=== PATIENT | male | born 1970 | race Caucasian/White ===

== ENCOUNTER 2017-12-27 12:03 | Emergency (ER) | payer OTHER ==
[~2017-12-27] VITALS: Ht 170.2 cm; Wt 88.5 kg
[2017-12-27 12:04] VITALS: BP 139/82; PULSE 81; RESP 19; TEMP 98.4; O2SAT 98
[2017-12-27] MEDS ORDERED: SODIUM CHLOR 0.9% 1000 ML INJ 1,000 ML IV SCH (12:27)
[2017-12-27] MEDS ORDERED: ONDANSETRON HCL 4 MG/2 ML VIAL IVP ONE (12:30)
[2017-12-27] MEDS ORDERED: SODIUM CHLORIDE 0.9% FLUSH 10 ML FLUSH IV FLUSH PRN (12:30)
[2017-12-27 13:01] VITALS: O2SAT 97
[2017-12-27 13:07] LABS: AUTOMATED NEUTROPHIL # 4.4 TH/MM3 (1.8-7.7); BASOPHIL # 0.1 TH/MM3 (0-0.2); BASOPHIL % 0.8 % (0.0-2.0); EOSINOPHIL # 0.3 TH/MM3 (0-0.4); EOSINOPHIL % 2.9 % (0.0-4.0); HEMATOCRIT 45.1 % (39.0-51.0); HEMOGLOBIN 15.4 GM/DL (13.0-17.0); LYMPH % 42.2 % (9.0-44.0); LYMPHOCYTE # 4.1 TH/MM3 (1.0-4.8); MEAN CORPUSCULAR HEMOGLOBIN 30.4 PG (27.0-34.0); MEAN CORPUSCULAR HGB CONC 34.2 % (32.0-36.0); MEAN PLATELET VOLUME 10.1 FL (7.0-11.0); MONO % 9.1 % (0.0-8.0); MONOCYTE # 0.9 TH/MM3 (0-0.9); PLATELET COUNT 141 TH/MM3 (150-450); RED BLOOD COUNT 5.07 MIL/MM3 (4.50-5.90); RED CELL DISTRIBUTION WIDTH 13.8 % (11.6-17.2); WHITE BLOOD COUNT 9.7 TH/MM3 (4.0-11.0)
--- NOTE | 2017-12-27 13:24 | RADRPT ---
EXAM DATE/TIME: 12/27/2017 12:53 [place] COMPARISON: No previous studies available for comparison. INDICATIONS : Left flank pain with hematuria ORAL CONTRAST: No oral contrast ingested. RADIATION DOSE: 8.25 CTDIvol (mGy) MEDICAL HISTORY : Renal calculi. SURGICAL HISTORY : Lithrotripsy ENCOUNTER: Initial ACUITY: 2 days PAIN SCALE: 3/10 LOCATION: Left flank TECHNIQUE: Volumetric scanning of the abdomen and pelvis was performed. Using automated exposure control and ad justment of the mA and/or kV according to patient size, radiation dose was kept as low as reasonably achievable to obtain optimal diagnostic quality images. DICOM format image data is available electro nically for review and comparison. FINDINGS: LOWER LUNGS: The visualized lower lungs are clear. LIVER: Homogeneous density without lesion. There is no dilation of the biliary tree. No calcified gallston es. SPLEEN: Normal size without lesion. PANCREAS: Within normal limits. KIDNEYS: Normal in size and shape. There is no mass or hydronephrosis. There are 2 nonobstructing left renal calculi measuring less than 1 mm and 4 mm. There is a 5-6 mm calculus in the mid to distal left urete r at the level of upper pelvis. This lies approximately 7 cm above the ureteral vesicular junction. ADRENAL GLANDS: Within normal limits. VASCULAR: There is no aortic aneurysm. BOWEL/MESENTERY: The stomach, small bowel, and colon demonstrate no acute abnormality. There is no free intraperitone al air or fluid. ABDOMINAL WALL: Within normal limits. RETROPERITONEUM: There is no lymphadenopathy. BLADDER: No wall thickening or mass. REPRODUCTIVE: Within normal limits. INGUINAL: There is no lymphadenopathy or hernia. MUSCULOSKELETAL: Within normal limits for patient age. CONCLUSION: 1. 6-7 mm mid to distal left ureteral calculus with no hydronephrosis at this time. 2. 2 smaller left renal calculi. Carl Kimble MD on December 27, 2017 at 13:11 Board Certified Radiologist. This report was verified electronically.
[2017-12-27 13:27] LABS: ALBUMIN 3.7 GM/DL (3.4-5.0); AST (GOT) 39 U/L (15-37); BICARBONATE 26.9 MEQ/L (21.0-32.0); BLOOD UREA NITROGEN 16 MG/DL (7-18); CALCIUM 8.5 MG/DL (8.5-10.1); CHLORIDE 106 MEQ/L (98-107); CREATININE 1.16 MG/DL (0.60-1.30); GLOMERULAR FILTRATION RATE 68 ML/MIN (>89); GLUCOSE,RANDOM 84 MG/DL (74-106); SODIUM (NA) 140 MEQ/L (136-145)
[2017-12-27 13:31] LABS: ALKALINE PHOSPHATASE 87 U/L (45-117); ALT (GPT) 55 U/L (12-78); TOTAL BILIRUBIN ADULT 0.5 MG/DL (0.2-1.0); TOTAL PROTEIN 7.3 GM/DL (6.4-8.2)
[2017-12-27] MEDS ORDERED: ZOFR4TAB3 SL (13:33)
[2017-12-27] MEDS ORDERED: NORC5TAB PO (13:33)
[2017-12-27] MEDS ORDERED: TAMS5CAP PO (13:33)
--- NOTE | 2017-12-27 13:33 | PD ---
HPI Chief Complaint: Flank/Kidney Pain Time Seen by Provider: 12:22 Travel History International Travel<30 days: No Contact w/Intl Traveler<30days: No Traveled to known affect area: No History of Present Illness HPI This is a 47-year-old male who presents to the emergency department with pain in his left flank and left abdomen that started yesterday, intermittent, moderate severity, migrating into his groin associated with donna blood in his urine. He has a long history of kidney stones. He did require lithotripsy and [place] Patient denies any fevers or chills. He denies any nausea or vomiting. He says right now his pain is a 3 or 4 out of 10. He says this feels very different from stones he has had in the past. Typically has stones last for 3-4 hours and is able to pass them without intervention. He says this is the first time he has had pain in his lower abdomen he has never had as much blood in his urine as he does today. PFSH Past Medical History Diminished Hearing: No Kidney Stones: Yes Past Surgical History Genitourinary Surgery: Yes (lithotripsy, stent place and removed to right kidney) Social History Alcohol Use: No Tobacco Use: Yes (1ppd) Substance Use: Yes (weed) Allergies-Medications (Allergen,Severity, Reaction): Coded Allergies: No Known Allergies (Unverified , 12/27/17) Reported Meds & Prescriptions Reported Meds & Active Scripts Active Zofran Odt (Ondansetron Odt) 4 Mg Tab 4 Mg SL Q6HR PRN [place] 5-325 Tablet (Hydrocodone/Acetaminophen) 5 Mg-325 Mg Tablet 1 Tab PO Q6HR PRN Flomax (Tamsulosin HCl) 0.4 Mg Cap 0.4 Mg PO HS 5 Days Review of Systems Except as stated in HPI: all other systems reviewed are Neg Physical Exam Narrative GENERAL:Well appearing, no acute distress SKIN: Focused skin assessment warm and dry. HEAD: Atraumatic. Normocephalic. EYES: Pupils equal and round. No injection or drainage. ENT: Moist mucous membranes NECK: Trachea midline. CARDIOVASCULAR: Regular rate and rhythm. No murmur appreciated. RESPIRATORY: Clear to auscultation. Breath sounds equal bilaterally. GASTROINTESTINAL: Abdomen soft, mild tenderness in the left lower quadrant with no rebound or guarding. MUSCULOSKELETAL: No obvious deformities. NEUROLOGICAL: Awake and alert. No obvious cranial nerve deficits. Moving all extremities. PSYCHIATRIC: Appropriate mood and affect; insight and judgment normal. Data Data Last Documented VS Vital Signs Date Time Temp Pulse Resp B/P (MAP) Pulse Ox O2 Delivery O2 Flow Rate FiO2 12/27/17 13:01 97 Room Air 12/27/17 12:04 98.4 81 19 Orders Orders Complete Blood Count With Diff (12/27/17 12:27) Comprehensive Metabolic Panel (12/27/17 12:27) Urinalysis - C+S If Indicated (12/27/17 12:27) Ct Abd/Pel W/O Iv Contrast (12/27/17 12:27) Iv Access Insert/Monitor (12/27/17 12:27) Ecg Monitoring (12/27/17 12:27) Oximetry (12/27/17 12:27) Ondansetron Inj (Zofran Inj) (12/27/17 12:30) Sodium Chlor 0.9% 1000 Ml Inj (Ns 1000 M (12/27/17 12:27) Sodium Chloride 0.9% Flush (Ns Flush) (12/27/17 12:30) Urine Culture (12/27/17 12:45) Labs Laboratory Tests Test 12/27/17 12:45 White Blood Count 9.7 TH/MM3 Red Blood Count 5.07 MIL/MM3 Hemoglobin 15.4 GM/DL Hematocrit 45.1 % Mean Corpuscular Volume 89.0 FL Mean Corpuscular Hemoglobin 30.4 PG Mean Corpuscular Hemoglobin Concent 34.2 % Red Cell Distribution Width 13.8 % Platelet Count 141 TH/MM3 Mean Platelet Volume 10.1 FL Neutrophils (%) (Auto) 45.0 % Lymphocytes (%) (Auto) 42.2 % Monocytes (%) (Auto) 9.1 % Eosinophils (%) (Auto) 2.9 % Basophils (%) (Auto) 0.8 % Neutrophils # (Auto) 4.4 TH/MM3 Lymphocytes # (Auto) 4.1 TH/MM3 Monocytes # (Auto) 0.9 TH/MM3 Eosinophils # (Auto) 0.3 TH/MM3 Basophils # (Auto) 0.1 TH/MM3 CBC Comment DIFF FINAL Differential Comment Urine Color RED Urine Turbidity HAZY Urine pH 5.5 Urine Specific [place] 1.023 Urine Protein 100 mg/dL Urine Glucose (UA) NEG mg/dL Urine Ketones 10 mg/dL Urine Occult Blood LARGE Urine Nitrite NEG Urine Bilirubin NEG Urine Urobilinogen LESS THAN 2.0 MG/DL Urine Leukocyte Esterase TRACE Urine RBC /hpf Urine WBC 1 /hpf Urine Bacteria MOD /hpf Urine Mucus FEW /lpf Urine Yeast (Budding) FEW Microscopic Urinalysis Comment CULTURE INDICATED Blood Urea Nitrogen 16 MG/DL Creatinine 1.16 MG/DL Random Glucose 84 MG/DL Total Protein 7.3 GM/DL Albumin 3.7 GM/DL Calcium Level 8.5 MG/DL Alkaline Phosphatase 87 U/L Aspartate Amino Transf (AST/SGOT) 39 U/L Alanine Aminotransferase (ALT/SGPT) 55 U/L Total Bilirubin 0.5 MG/DL Sodium Level 140 MEQ/L Potassium Level 4.5 MEQ/L Chloride Level 106 MEQ/L Carbon Dioxide Level 26.9 MEQ/L Anion Gap 7 MEQ/L Estimat Glomerular Filtration Rate 68 ML/MIN MDM Medical Decision Making Medical Screen Exam Complete: Yes Emergency Medical Condition: Yes Interpretation(s) Afebrile, no tachycardia, normotensive No leukocytosis Electrolytes are reassuring CT abdomen and pelvis demonstrates a 6-7 mm mid to distal left ureteral calculus with no hydronephrosis Differential Diagnosis Nephrolithiasis, pyelonephritis, obstructing nephropathy, sepsis Narrative Course This is a 47-year-old male who presents to the emergency department with signs and symptoms classic for kidney stone. He says this feels different for him because of the position of the pain and the presence of hematuria. He was placed on a monitor and an IV was established. Labs are reassuring. He has no signs of infection. He has a 6-[address] imaging with no hydronephrosis. At this point the stone is fairly distal. I think it is reasonable for the patient follow-up as an outpatient with urology. If his pain gets worse he was instructed to return given the size of the stone. Patient will be discharged home with pain control and urology referral. Diagnosis Primary Impression: Kidney stone Referrals: Dane Parr MD Patient Instructions: General Instructions Additional Instructions: If you develop severe pain, inability to eat or drink, or fever return to the emergency department. Use a strainer to try to catch your stone. Take Lortab as needed for pain, and continue taking zofran as needed for nausea. Complete your course of tamsulosin. Follow up with urology as soon as possible. Med/Other Pt SpecificInfo: Prescription(s) given Scripts Cephalexin (Keflex) 500 Mg Cap 500 MG PO Q12H for Infection for 7 Days, #14 CAP 0 Refills Prov: Gabby Landry MD 12/27/17 Ondansetron Odt (Zofran Odt) 4 Mg Tab 4 MG SL Q6HR Y for Nausea/Vomiting, #10 TAB 0 Refills Prov: Gabby Landry MD 12/27/17 Hydrocodone/Acetaminophen ([place] 5-325 Tablet) 5 Mg-325 Mg Tablet 1 TAB PO Q6HR Y for PAIN SCALE 4 TO 10, #10 Prov: Gabby Landry MD 12/27/17 Tamsulosin (Flomax) 0.4 Mg Cap 0.4 MG PO HS for Manage Prostate Problems for 5 Days, #5 CAP 0 Refills Prov: Gbaby Landry MD 12/27/17 Disposition: 01 DISCHARGE HOME Condition: Stable Gabby Landry MD Dec 27, 2017 13:33
[2017-12-27 13:57] LABS: BACTERIA, URINE MOD /hpf; BILIRUBIN, URINE NEG (NEG); BLOOD, URINE LARGE (NEG); GLUCOSE,URINE NEG (NEG); KETONE, URINE 10 mg/dL (NEG); MUCUS URINE FEW /lpf (OCC); NITRITE,URINE NEG (NEG); PH, URINE 5.5 (5.0-8.5); URINE COLOR RED (YELLW/STRAW); URINE LEUKOCYTE ESTERASE TRACE (NEG)
[2017-12-27] MEDS ORDERED: CEPH-460 PO (14:24)
[2017-12-27 14:47] VITALS: BP 151/88
== END 2017-12-27 14:49 | disposition home or self-care (01) ==
LOC: NEPD 12:03
DX: N20.0 Calculus of kidney (principal); N20.1 Calculus of ureter; R31.9 Hematuria, unspecified; F17.200 Nicotine dependence, unspecified, uncomplicated; Z79.899 Other long term (current) drug therapy; Z87.442 Personal history of urinary calculi
CPT/HCPCS: 74176; 80053; 81001; 85025; 87086; 96360; 99284; J7030